=== PATIENT | female | born 1960 | race Two or more races ===

== ENCOUNTER 2021-01-03 13:43 | Emergency (ER) | payer OTHER ==
[~2021-01-03] VITALS: Ht 170.2 cm; Wt 48.1 kg
[2021-01-03] MEDS ORDERED: JANUVIA100 MG PO (13:55)
[2021-01-03] MEDS ORDERED: BASAGLAR K100 UNIT/1 SQ (13:55)
[2021-01-03] MEDS ORDERED: VICTOZA 2-0.6 MG/0.1 (13:55)
[2021-01-03] MEDS ORDERED: SIMVASTATIN10 MG PO (13:56)
[2021-01-03] MEDS ORDERED: GABAPENTIN100 MG (13:56)
[2021-01-03] MEDS ORDERED: ORPHENADRINE C100 MG PO (16:40)
[2021-01-03] MEDS ORDERED: KETO10TA2 PO (16:40)
== END 2021-01-03 16:46 | disposition home or self-care (01) ==
LOC: ER 13:43
DX: M25.551 Pain in right hip (principal); E11.65 Type 2 diabetes mellitus with hyperglycemia